=== PATIENT | male | born 1975 | race Hispanic/Latino ===

== ENCOUNTER 2016-10-04 22:14 | Emergency (ER) | payer OTHER ==
[2016-10-04 22:46] VITALS: BP 132/98; PULSE 138; RESP 22; TEMP 98.1; O2SAT 99
--- NOTE | 2016-10-04 22:53 | ED PDOC ---
HPI: Psych/Substance Abuse Time Seen by Provider: 10/04/16 22:15 Chief Complaint (Nursing): Psychiatric Evaluation Chief Complaint (Provider): alcohol use History Per: Patient History/Exam Limitations: no limitations Onset/Duration Of Symptoms: Hrs Current Symptoms Are (Timing): Still Present Associated Symptoms: Agitation Additional Complaint(s): 41yo male with PMHx including anxiety presents to the ED for evaluation of alcohol use and agitation. Patient brought in by ginner after he discovered his was cheating on him. Patient locked himself in a room and drank a lot of alcohol. found patient and called the ginner. Sister here at bedside and she lives in [place]. Upon arrival to ED, patient is AAOx3 ambulating with steady gait and clear speech. Denies SI, HI, and any medical complaints. Patient has no psych hx. Past Medical History Reviewed: Historical Data, Nursing Documentation, Vital Signs Vital Signs: Last Vital Signs Temp 98.1 F 10/04/16 22:39 Pulse 138 H 10/04/16 22:39 Resp 22 10/04/16 22:39 BP 132/98 H 10/04/16 22:39 Pulse Ox 99 10/04/16 22:39 - Medical History PMH: Anxiety - Surgical History Surgical History: No Surg Hx - Family History Family History: States: No Known Family Hx - Social History Current smoker - smoking cessation education provided: No Alcohol: Occasional Drugs: Denies - Home Medications Home Medications: Ambulatory Orders Medication Instructions Recorded Azithromycin [Z-Earnest] 250 mg PO DAILY #6 tab 09/29/16 Benzonatate [Tessalon Perles] 100 mg PO TID PRN #15 sgl 09/29/16 - Allergies Allergies/Adverse Reactions: Allergies Allergy/AdvReac Type Severity Reaction Status Date / Time albuterol [From DuoNeb] AdvReac Lightheaded Verified 09/29/16 08:51 ness ipratropium [From DuoNeb] AdvReac Lightheaded Verified 09/29/16 08:51 ness Review of Systems ROS Statement: Except As Marked, All Systems Reviewed And Found Negative Constitutional: Positive for: Other (alcohol use ) Psych: Positive for: Other (agitation, no HI ). Negative for: Suicidal ideation Physical Exam - Reviewed Nursing Documentation Reviewed: Yes Vital Signs Reviewed: Yes - Physical Exam Appears: Positive for: Well, No Acute Distress Head Exam: Positive for: ATRAUMATIC, NORMAL INSPECTION, NORMOCEPHALIC Skin: Positive for: Normal Color, Warm, Dry Eye Exam: Positive for: Normal appearance, EOMI, PERRL ENT: Positive for: Normal ENT Inspection Neck: Positive for: Normal, Painless ROM, Supple Cardiovascular/Chest: Positive for: Regular Rate, Rhythm. Negative for: Murmur , Tachycardia Respiratory: Positive for: Normal Breath Sounds. Negative for: Wheezing, Respiratory Distress Gastrointestinal/Abdominal: Positive for: Normal Exam, Bowel Sounds, Soft. Negative for: Tenderness Back: Positive for: Normal Inspection Extremity: Positive for: Normal ROM. Negative for: Deformity, Swelling Neurologic/Psych: Positive for: Alert, Oriented (x3 ), Gait (steady ) - ECG O2 Sat by Pulse Oximetry: 99 Pulse Ox Interpretation: Normal (RA) Medical Decision Making Medical Decision Makin: Impression: alcohol intoxication, agitation Plan: Patient initially put in restraints due to agitation and given Haldol and Ativan to relieve agitation. 2310: Arti Arreola (sister) at bedside states she will take responsibility for patient and take him back to her apartment and hang out with him and watch him overnight. she states he has no psychiatric history . Patient AAOx3 ambulating with steady gait and clear speech and stable for d/c. Scribe Attestation: Documented by Jessica Bain acting as a scribe for Gretchen Guevara MD. Provider Scribe Attestation: All medical record entries made by the Scribe were at my direction and personally dictated by me. I have reviewed the chart and agree that the record accurately reflects my personal performance of the history, physical exam, medical decision making, and the department course for this patient. I have also personally directed, reviewed, and agree with the discharge instructions and disposition. Disposition - Clinical Impression Clinical Impression: Alcohol intoxication - Patient ED Disposition Is Patient to be Admitted: No Counseled Patient/Family Regarding: Studies Performed, Diagnosis, Need For Followup - Disposition Disposition: Routine/Home Disposition Time: 23:00 Condition: STABLE Additional Instructions: follow up with your primary doctor tomorrow return to ED with any worsening or concerning symptoms. Instructions: Alcohol Intoxication (ED)
== END 2016-10-04 22:59 | disposition home or self-care (01) ==
LOC: H.ER 22:14
DX: F10.129 Alcohol abuse with intoxication, unspecified (principal); F41.9 Anxiety disorder, unspecified